=== PATIENT | female | born 1960 | race Caucasian/White ===

== ENCOUNTER 2020-04-22 12:34 | Emergency (ER) | payer OTHER ==
--- NOTE | 2020-04-22 13:52 | CR ---
PROCEDURE INFORMATION: Exam: XR Right Hand Exam date and time: 04/22/2020 1:13 PM Age: 60 years old Clinical indication: Injury or trauma; Fall; Blunt trauma (contusions or hematomas); Hand; Right; Prior surgery; Additional info: Fall, pain, injury TECHNIQUE: Imaging protocol: XR Right hand. Views: 3 or more views. COMPARISON: No relevant prior exams. FINDINGS: Bones/joints: Arthrodesis of the thumb metacarpophalangeal joint. No evidence of loosening or infection of the hardware. Mild narrowing of the radiocarpal joint. The midcarpal joint is intact. Czne-mb-vrctvqyt narrowing and spurring of the 1st carpometacarpal joint. Mild spurring of the metacarpal heads. Joints of the fingers are intact. No fractures or dislocations. Soft tissues: Normal. No swelling or abnormal density. IMPRESSION: 1. No fractures or dislocations. 2. 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 3. Thumb arthrodesis without evidence of complication.
--- NOTE | 2020-04-22 13:53 | CR ---
PROCEDURE INFORMATION: Exam: XR Right Wrist Exam date and time: 04/22/2020 1:20 PM Age: 60 years old Clinical indication: Injury or trauma; Fall; Blunt trauma (contusions or hematomas); Wrist; Right; Additional info: Fall, pain, injury TECHNIQUE: Imaging protocol: XR Right wrist. Views: 3 or more views. COMPARISON: CR Hand Comp Min 3V Rt 04/22/2020 1:13 PM FINDINGS: Bones/joints: Mild narrowing of the radiocarpal joint. Widening of the scapholunate interval. The midcarpal joint is intact. Ihyv-il-cobhbiiq narrowing and spurring of the 1st carpometacarpal joint. No fractures or dislocations. Soft tissues: Normal. No swelling or abnormal density. IMPRESSION: 1. No fractures or dislocations. 2. Widening of the scapholunate interval may represent ligamentous disruption. 3. Ouxz-wc-fjlubkaf degenerative osteoarthritis of the wrist.
--- NOTE | 2020-04-22 17:02 | EDM.PDOC ---
Scribed by Elvia Pereyra 04/22/20 [id number] for [employer] NP ED HPI GENERAL MEDICAL PROBLEM - General Chief Complaint: Upper Extremity Injury/Pain Stated Complaint: RIGHT HAND INJURY, SWOLLEN Time Seen by Provider: 04/22/20 14:23 Source of Information: Reports: Patient, RN, RN Notes Reviewed History Limitations: Reports: No Limitations - History of Present Illness INITIAL COMMENTS - FREE TEXT/NARRATIVE: Patient is a 60-year-old female who presents to ER with complaint of pain to right wrist. Patient states she fell on the right wrist last evening. Swelling is present in the right hand/wrist. Previous injury--hardware present to right wrist. Onset: Sudden Onset Date: 04/21/20 Duration: Constant Location: Reports: Upper Extremity, Right Quality: Reports: Ache Severity: Moderate Improves with: Reports: None Worsens with: Reports: None Associated Symptoms: Reports: No Other Symptoms Right Hand Pain Score (Numeric/FACES): 8 - Related Data Allergies Allergy/AdvReac Type Severity Reaction Status Date / Time No Known Allergies Allergy Verified 04/22/20 13:10 Home Meds: Home Meds Oxybutynin Chloride [Ditropan Xl] 10 mg PO DAILY 04/22/20 [History] PARoxetine HCL [Paxil Cr] 37.5 mg PO DAILY 04/22/20 [History] Past Medical History - Past Health History Medical/Surgical History: Denies Medical/Surgical History HEENT History: Reports: Impaired Vision Cardiovascular History: Reports: None Respiratory History: Reports: None Gastrointestinal History: Reports: None Genitourinary History: Reports: Urinary Incontinence [employer] History: Reports: None Neurological History: Reports: None Psychiatric History: Reports: Anxiety, Depression Endocrine/Metabolic History: Reports: None Hematologic History: Reports: None Immunologic History: Reports: None Oncologic (Cancer) History: Reports: None Dermatologic History: Reports: None - Infectious Disease History Infectious Disease History: Reports: None - Past Surgical History Head Surgeries/Procedures: Reports: None Musculoskeletal Surgical History: Reports: Arthroscopic Knee, Knee Replacement Social & Family History - Family History Family Medical History: No Pertinent Family History - Tobacco Use Tobacco Use Status *Q: Current Every Day Tobacco User Years of Tobacco use: 10 Packs/Tins Daily: 1 - Caffeine Use Caffeine Use: Reports: Coffee - Recreational Drug Use Recreational Drug Use: No Review of Systems - Review of Systems Review Of Systems: Comprehensive ROS is negative, except as noted in HPI. ED EXAM, GENERAL - Physical Exam Exam: See Below Exam Limited By: No Limitations General Appearance: Alert, WD/WN, No Apparent Distress Eye Exam: Bilateral Eye: EOMI, Normal Inspection, PERRL Ears: Normal External Exam, Normal Canal, Hearing Grossly Normal, Normal TMs Nose: Normal Inspection, Normal Mucosa, No Blood Throat/Mouth: Normal Inspection, Normal Lips, Normal Teeth, Normal Gums, Normal Oropharynx, Normal Voice, No Airway Compromise Head: Atraumatic, Normocephalic Neck: Normal Inspection, Supple, Non-Tender, Full Range of Motion Respiratory/Chest: No Respiratory Distress, Lungs Clear, Normal Breath Sounds, No Accessory Muscle Use, Chest Non-Tender Cardiovascular: Normal Peripheral Pulses, Regular Rate, Rhythm, No Edema, No Gallop, No JVD, No Murmur, No Rub GI/Abdominal: Normal Bowel Sounds, Soft, Non-Tender, No Organomegaly, No Distention, No Abnormal Bruit, No Mass (Female) Exam: Deferred Rectal (Female) Exam: Deferred Back Exam: Normal Inspection, Full Range of Motion, NT Extremities: Other (swelling right wrist with decreased range of motion.) Neurological: Alert, Oriented, CN II-XII Intact, Normal Cognition, Normal Gait, Normal Reflexes, No Motor/Sensory Deficits Psychiatric: Normal Affect, Normal Mood Skin Exam: Warm, Dry, Intact, Normal Color, No Rash Lymphatic: No Adenopathy ED TRAUMA EXTREMITY PROCEDURES - Splinting Right Upper Extremity Splint Site: right wrist Pre-Procedure NV Status: Normal Post-Procedure NV Status: Normal Splint Material: Velcro Splint Design: Volar Applied & Form Fitted By: Nurse, Tech Provider Post-Splint Application NV Check: NV Status Normal, Good Position Complications: No Course - Vital Signs Last Recorded V/S: Last Vital Signs Temp 98.1 F 04/22/20 13:12 Pulse 76 04/22/20 13:12 Resp 18 04/22/20 13:12 BP 148/71 H 04/22/20 13:12 Pulse Ox 100 04/22/20 13:12 - Radiology Interpretation Free Text/Narrative:: Right hand x-ray: \ PROCEDURE INFORMATION: Exam: XR Right Hand Exam date and time: 04/22/2020 1:13 PM Age: 60 years old Clinical indication: Injury or trauma; Fall; Blunt trauma (contusions or hematomas); Hand; Right; Prior surgery; Additional info: Fall, pain, injury TECHNIQUE: Imaging protocol: XR Right hand. Views: 3 or more views. COMPARISON: No relevant prior exams. FINDINGS: Bones/joints: Arthrodesis of the thumb metacarpophalangeal joint. No evidence of loosening or infection of the hardware. Mild narrowing of the radiocarpal joint. The midcarpal joint is intact. Mild-tomoderate narrowing and spurring of the 1st carpometacarpal joint. Mild spurring of the metacarpal heads. Joints of the fingers are intact. No fractures or dislocations. Soft tissues: Normal. No swelling or abnormal density. IMPRESSION: 1. No fractures or dislocations. 2. 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 3. Thumb arthrodesis without evidence of complication. Thank you for allowing us to participate in the care of your patient.Dictated and Authenticated by: Nima Gama MD 04/22/2020 1:52 PM Central Time ([place] & [place] See rad report. Right wrist x-ray: PROCEDURE INFORMATION: Exam: XR Right Wrist Exam date and time: 04/22/2020 1:20 PM Age: 60 years old Clinical indication: Injury or trauma; Fall; Blunt trauma (contusions or hematomas); Wrist; Right; Additional info: Fall, pain, injury TECHNIQUE: Imaging protocol: XR Right wrist. Views: 3 or more views. COMPARISON: CR Hand Comp Min 3V Rt 04/22/2020 1:13 PM FINDINGS: Bones/joints: Mild narrowing of the radiocarpal joint. Widening of the scapho lunate interval. The midcarpal joint is intact. Mnil-hp-rkupdazg narrowing and spurring of the 1st carpometacarpal joint. No fractures or dislocations. Soft tissues: Normal. No swelling or abnormal density. IMPRESSION: 1. No fractures or dislocations. 2. Widening of the scapholunate interval may represent ligamentous disruption. 3. Uliu-qq-wexmpbqm degenerative osteoarthritis of the wrist. Thank you for allowing us to participate in the care of your patient. Dictated and Authenticated by: Nima Gama MD 04/22/2020 1:53 PM Central Time ([place] & [place]) See rad report. Departure - Departure Time of Disposition: 14:47 Disposition: Home, Self-Care 01 Condition: Good Clinical Impression: Sprain of right wrist Qualifiers: Encounter type: initial encounter Qualified Code(s): S63.501A - Unspecified sprain of right wrist, initial encounter - Discharge Information *PRESCRIPTION DRUG MONITORING PROGRAM REVIEWED*: No *COPY OF PRESCRIPTION DRUG MONITORING REPORT IN PATIENT JOVON: No Instructions: Cast or Splint Care, Adult, Gozw-hu-Sayf, Wrist Sprain, Adult Forms: ED Department Discharge Additional Instructions: May use ice as tolerated May use Tylenol and/or ibuprofen as directed Wear splint at all times except when showering Follow-up in 2 weeks with your primary care provider if no improvement Sepsis Event Note (ED) - Evaluation Sepsis Screening Result: No Definite Risk - Focused Exam Vital Signs: Vital Signs Temp Pulse Resp BP Pulse Ox 04/22/20 13:12 98.1 F 76 18 148/71 H 100 I have read and agree with the documentation that has been completed regarding this visit. By signing this record, I attest that the documentation was completed in my physical presence and is an accurate record of the encounter.
== END 2020-04-22 14:52 | disposition home or self-care (01) ==
LOC: DL.ED 12:34
DX: S63.501A Unspecified sprain of right wrist, initial encounter (principal); Z72.0 Tobacco use; Z79.899 Other long term (current) drug therapy; W19.XXXA Unspecified fall, initial encounter
CPT/HCPCS: 73110-RT; 73130-RT; 99283

== ENCOUNTER 2021-09-08 23:55 | Emergency (ER) | payer OTHER ==
[2021-09-09] MEDS ORDERED: HYDROmorphone 0.5 MG/0.5 ML Syringe IVPUSH ONE ×2 (00:07→00:39)
[2021-09-09] MEDS ORDERED: Sodium Chloride 0.9% 10 ML Syringe FLUSH PRN (00:08)
[2021-09-09] MEDS ORDERED: fentaNYL 100 MCG/2 ML SDV IVPUSH ONE (01:03)
== END 2021-09-09 02:32 | disposition home or self-care (01) ==
LOC: DL.ED 23:55
DX: S43.014A Anterior dislocation of right humerus, initial encounter (principal); F17.210 Nicotine dependence, cigarettes, uncomplicated; Z79.899 Other long term (current) drug therapy; W01.0XXA Fall on same level from slipping, tripping and stumbling without subsequent striking against object, initial encounter
CPT/HCPCS: 23650; 73020; 73030; 96374; 96375; 99283; J1170; J3010; J3490; 99282